=== PATIENT | male | born 1970 | race Caucasian/White ===

== ENCOUNTER 2018-09-12 06:13 | Inpatient (IN) | payer OTHER ==
[2018-09-09 16:15] VITALS: BMI 35.3
[2018-09-12] VITALS (26 sets, daily range): BP systolic 96–123; BP diastolic 62–79; PULSE 64–121; RESP 12–22; Ht 182.9 cm; Wt 116.3 kg
[~2018-09-12] VITALS: Ht 182.9 cm; Wt 116.3 kg
--- NOTE | 2018-09-12 05:27 | HPN ---
Date/Time of Note Date/Time of Note DATE: 09/12/18 TIME: 05:27 Interval H&P Admission Note Pt. seen H&P reviewed: No system changes JYOTI RASCON MD September 12, 2018 05:27
--- NOTE | 2018-09-12 05:30 | OPR ---
Date/Time of Note Date/Time of Note DATE: 09/12/18 TIME: 05:27 Operative Report Procedure Date: September 12, 2018 Preoperative Diagnosis Right shoulder rotator cuff tear arthropathy Postoperative Diagnosis 1. Right shoulder secondary arthritis (cuff arthropathy) 2. Right shoulder acromioclavicular joint arthritis 3. Right shoulder biceps partial tendon tear Operation/Procedure Performed 1. Right reverse total shoulder arthroplasty 2. Right shoulder open distal clavicle excision 3. Right shoulder open biceps tenodesis 4. Right shoulder injection of PRP solution Surgeon see signature line Physical Medicine Teacher Delano Fabian PA-C Anesthesia Type: general Estimated Blood Loss: 150 - 200 ml's Transfusion none Specimen None Grafts/Implants See operative note Complications none Pt Condition Post Procedure: stable Disposition: PACU Procedure Description WINDOWS SERVER SPECIALIST SURGEON: LAMONT Quiroz was asked to be present for this case at my request. Assistance was necessary as a result of the highly technical nature of this operation. When performing an open total shoulder replacement, it is critical to have a trained assistant offset press operator who is an expert in handling the extremity and assisting the surgeon in tasks such as manipulation of the arm, protection of the neurovascular structures and positioning the implants. This assistance cannot be performed by a wafer fab technician, as it is considered an integral part of the procedure and the assistant offset press operator should be compensated for his time. PROCEDURE IN DETAIL: Following the administration of general anesthesia supplemented with a peripheral nerve block for postoperative pain control, the patient was examined under anesthesia. This revealed severe stiffness and significant glenohumeral as well as subacromial crepitus. The antecubital fossa was then prepped and 60 cc of blood were aspirated. The blood was then subsequently given to the digital media representative from the company to prepare the PRP solution. Examination of the right shoulder revealed very significant stiffness including a forward flexion of about 90 degrees abduction 75 degrees maximal external rotation 65 degrees with severe crepitus. There was anteroposterior escape of the humeral head, also. The patient was then placed in the beach chair position. Sterile prep and drape was then undertaken. An extended deltopectoral incision was then carried through the interval exposing the conjoined tendon and retracting it medially. The superior aspect of the joint was then evaluated. Significant osteophytes were noted in the acromioclavicular joint. The acromioclavicular joint capsule was then entered and the distal clavicle skeletonized for a distance of 10 mm. Severe arthritic changes were noted. An osteotome was then used to resect 10 mm of the distal clavicle. Good decompression was confirmed. The AC joint was irrigated and closed using a #2 interrupted suture. The subscapularis was noted to be partially disrupted superiorly. Severe arthritic changes were noted with very large peripheral osteophytes. The superior rotator cuff was torn and retracted. The biceps tendon was noted to be partially subluxed and had some fraying in the bicipital groove. The intra- articular portion was resected and the distal aspect of the biceps tendon was then mobilized. Multiple #2 sutures were placed in the bicipital groove at the level of the pectoralis major creating a bicipital tenodesis. Solid fixation was obtained. A humeral head osteotomy was then created in the appropriate degree of version and inclination. The humerus was retracted and the glenoid was exposed. Peripheral osteophytes were removed and a complete capsulectomy performed. The central canal of the glenoid was then entered and prepared for a standard Depuy baseplate. A standard Depuy baseplate was then applied with four peripheral screws and solid fixation. A 38 mm glenosphere was then applied, with solid fixation. The humerus was then reamed and prepared for a 14 mm humeral component with a standard metaphyseal component with a 9 mm liner. The humeral canal was irr igated and the PRP solution was implanted within the humeral canal. The actual components were implanted with solid fixation. The arm was taken through full range of motion with no evident instability. The joint was then thoroughly irrigated, the deep tissues were approximated using #1 suture followed by closure of the deep layer using 2-0 Monocryl. The skin was closed using 4-0 Monocryl suture, and a Prenio dressing. An Ultrasling was then applied. The patient was awakened and transported to the recovery room in stable condition. Estimated blood loss for this procedure was 250 cc. Radiographs will be obtained in the recovery room. JYOTI RASCON MD September 12, 2018 05:30
[~2018-09-12 06:13] MED LIST: BUPIVACAINE 0.5% (SDV) 30 ML, morphine SULFATE (PF) 8 MG, EPINEPHrine 0.3 MG, KETOROLAC... IRR SCH; DEXAMETHASONE 1 MG TAB PO SCH; GABAPENTIN 300 MG CAP PO SCH; NAPR275T83 PO; TRAM50TA PO; TRANEXAMIC ACID 1GM/100ML(PMX) 100 ML IVPB SCH; VANCOMYCIN 1 GM (PMX) 250 ML IVPB SCH
[2018-09-12] MEDS ORDERED: THROMBIN (BOVINE) 5,000 UNIT VIAL TP ONE (06:57)
[2018-09-12] MEDS ORDERED: CA CHLORIDE 10% 10 ML SYRINGE ONE (06:58)
[2018-09-12] MEDS ORDERED: POLYMYXIN/BACITRACIN 1L IRRIG ONE (06:58)
[2018-09-12] MEDS ORDERED: DESFLURANE 15 MIN ONE (07:00)
[2018-09-12] MEDS ORDERED: CEFAZOLIN 1 GM INJ ONE (07:00)
[2018-09-12] MEDS ORDERED: PROPOFOL 200 MG INJ ONE (07:00)
[2018-09-12] MEDS ORDERED: ROCURONIUM 50 MG INJ ONE (07:00)
[2018-09-12] MEDS ORDERED: BUPIVACAINE 0.5% (SDV) 30 ML INJ ONE (07:28)
[2018-09-12] MEDS ORDERED: LACTATED RINGER'S 1,000 ML IV SCH (07:30)
[2018-09-12] MEDS ORDERED: MIDAZOLAM 1 MG/ML 2 ML INJ ONE (07:31)
[2018-09-12] MEDS ORDERED: LIDOCAINE 2% (SDV) 5 ML INJ ONE (07:31)
--- NOTE | 2018-09-12 07:53 | PREAC ---
Date/Time of Note Date/Time of Note DATE: 09/12/18 TIME: 07:51 Anesthesia Eval and Record Evaluation Time Pre-Procedure Interview DATE: 09/12/18 TIME: 07:51 Age 48 Sex male NPO: 8 hrs Preoperative diagnosis right shoulder arthritis Planned procedure reverse right total shoulder replacement Past Medical History Past Medical History: Includes Pulm: Smoking Hx Musculoskeletal: Osteoarthritis GI: Obesity Surgery & Anesthesia Issues No known issue Meds Anticoagulation: No Beta Cristobal within 24 hr: No Reason Beta Cristobal not given: Pt. not on B-Cristobal Reported Medications Naproxen Sodium* (Naproxen*) 275 Mg Tablet, 500 MG PO BID PRN for PAIN, TAB 09/09/18 Tramadol Hcl* (Ultram*) 50 Mg Tablet, 50 MG PO Q6H PRN for PAIN, TAB 09/09/18 Current Medications Vancomycin HCl 250 ml @ 250 mls/hr PRE-OP IVPB Last administered on 09/12/18at 07:28; Admin Dose 250 MLS/HR; Start 09/12/18 at 06:00; Stop 09/12/18 at 15:00 Tranexamic Acid 100 ml @ 200 mls/hr Pre-op IVPB ; Start 09/12/18 at 06:00; Stop 09/12/18 at 15:00 Bupivacaine HCl/ Morphine Sulfate/ Epinephrine/ Ketorolac Tromethamine/ Clonidine/Sodium Chloride/ Vancomycin HCl INTRA-OP IRR ; Start 09/12/18 at 06:00; Stop 09/12/18 at 12:00 Dexamethasone (Decadron) 2 mg PREOP PO Last administered on 09/12/18at 07:29; Admin Dose 2 MG; Start 09/12/18 at 06:00; Stop 09/12/18 at 12:00 Gabapentin (Neurontin) 300 mg ONCE PO Last administered on 09/12/18at 07:28; Admin Dose 300 MG; Start 09/12/18 at 06:00; Stop 09/12/18 at 12:00 Lactated Ringer's 1,000 ml @ 0 mls/hr Q0M IV Last administered on 09/12/18at 07:29; Admin Dose 25 MLS/HR; Start 09/12/18 at 07:30 Meds reviewed: Yes Allergies Coded Allergies: Penicillins (Verified Allergy, Unknown, 09/12/18) PASSED OUT Allergies Reviewed: Yes Labs/Studies Labs Reviewed: Reviewed by anesthesiologist test: N/A Pre-procedure Exam Last vitals Vital Signs Date Temp Pulse Resp B/P (MAP) Pulse Ox O2 O2 Flow FiO2 Time Delivery Rate 09/12/18 97.9 87 16 123/79 16 Room Air 07:38 (94) Airway: Adequate mouth opening, Adequate thyromental dist Mallampati: Mallampati II Teeth: Normal Lung: Normal Heart: Normal ASA Physical Status ASA physical status: 2 Emergency: None Planned Anesthetic General/MAC: ETT Nerve block: Brachial plexus (right) Planned Pain Management Parenteral pain med Pre-operative Attestations Prior to commencing anesthesia and surgery, the patient was re-evaluated, there was verification of: *The patient's identity *The results of appropriate recent lab work and preoperative vital signs *The above evaluation not changing prior to induction *Anesthetic plan, risk benefits, alternative and complications discussed with patient/family; questions answered; patient/family understands, accepts and wishes to proceed. URIEL MCCARTHY September 12, 2018 07:53
[2018-09-12] MEDS ORDERED: LABETALOL HCL 20MG INJ ONE (08:50)
[2018-09-12] MEDS ORDERED: ONDANSETRON 4 MG INJ ONE (09:23)
[2018-09-12] MEDS ORDERED: DEXAMETHASONE 4 MG/ML 5 ML INJ ONE (09:23)
[2018-09-12] MEDS ORDERED: ONDANSETRON 4 MG INJ IV PRN ×2 (10:00→10:30)
[2018-09-12] MEDS ORDERED: LOPERAMIDE 2 MG CAP PO PRN (10:00)
[2018-09-12] MEDS ORDERED: KETOROLAC 15 MG INJ IV PRN (10:00)
[2018-09-12] MEDS ORDERED: NACL 0.9% 3 ML SYG IV SCH (10:00)
[2018-09-12] MEDS ORDERED: oxyCODONE 5 MG TAB PO PRN ×3 (10:00)
[2018-09-12] MEDS ORDERED: ZOLPIDEM 5 MG TAB PO PRN (10:00)
[2018-09-12] MEDS ORDERED: DIPHENHYDRAMINE 50 MG INJ IV PRN ×2 (10:00→10:30)
[2018-09-12] MEDS ORDERED: TRANEXAMIC ACID 1GM/100ML(PMX) 100 ML IVPB ONE (10:00)
[2018-09-12] MEDS ORDERED: HYDROmorphONE 1 MG/ML SYG IV PRN (10:00)
[2018-09-12] MEDS ORDERED: MAGNESIUM HYDROXIDE 30ML CUP PO PRN (10:00)
[2018-09-12] MEDS ORDERED: GLYCOPYRROLATE 0.4 MG INJ ONE (10:13)
[2018-09-12] MEDS ORDERED: NEOSTIGMINE 3 MG/3 ML SYRINGE ONE (10:13)
[2018-09-12] MEDS ORDERED: EPHEDrine SULFATE 50 MG/5 ML SYG IV PRN (10:30)
[2018-09-12] MEDS ORDERED: MEPERIDINE 25 MG INJ IV PRN (10:30)
[2018-09-12] MEDS ORDERED: METOCLOPRAMIDE 10 MG INJ IV PRN (10:30)
[2018-09-12] MEDS ORDERED: ALBUTEROL 0.083% (NEB) 2.5 MG/3 ML AMP HHN PRN (10:30)
[2018-09-12] MEDS ORDERED: KETOROLAC 30 MG INJ IV PRN (10:30)
[2018-09-12] MEDS ORDERED: HYDROmorphONE 1 MG/5 ML IV SYRINGE IV PRN ×3 (10:30)
[2018-09-12] MEDS ORDERED: LABETALOL HCL 20MG INJ IV PRN (10:30)
[2018-09-12] MEDS ORDERED: OXYCODONE/ACETAMINOPHEN (5/325) TAB PO PRN ×2 (10:30)
[2018-09-12] MEDS ORDERED: FENTAnyl 50 MCG/ML VIAL IV PRN ×3 (10:30)
[2018-09-12] MEDS ORDERED: MIDAZOLAM 1 MG/ML 2 ML INJ IV PRN (10:30)
[2018-09-12] MEDS ORDERED: hydrALAzine 20 MG INJ IV PRN (10:30)
--- NOTE | 2018-09-12 10:30 | PAC ---
Date/Time of Note Date/Time of Note DATE: 09/12/18 TIME: 10:30 Post-Anesthesia Notes Post-Anesthesia Note Last documented vital signs Vital Signs Date Temp Pulse Resp B/P (MAP) Pulse Ox O2 O2 Flow FiO2 Time Delivery Rate 09/12/18 97.9 87 16 123/79 16 Room Air 1030 (94) Activity: WNL Respiratory function: WNL Cardiovascular function: WNL Mental status: Baseline Pain reasonably controlled: Yes Hydration appropriate: Yes Nausea/Vomiting absent: Yes URIEL MCCARTHY September 12, 2018 10:30
[2018-09-12] MEDS: ACETAMINOPHEN 500 MG TAB PO SCH ×3 (12:00→23:40)
[2018-09-12] MEDS: DEXAMETHASONE 2 MG TAB PO SCH ×3 (12:00→23:37)
[2018-09-12] MEDS: VANCOMYCIN 500 MG (PMX) 100 ML IVPB SCH (19:50)
[2018-09-12] MEDS ORDERED: GABAPENTIN 300 MG CAP PO SCH (21:00)
[2018-09-12] MEDS: SENNA/DOCUSATE NA (8.6MG/50MG) TAB PO SCH (21:22)
[2018-09-13] VITALS: BP 101/61; PULSE 99; RESP 16
--- NOTE | 2018-09-13 05:52 | PN ---
Date/Time of Note Date/Time of Note DATE: 09/13/18 TIME: 05:52 Subjective Awake and alert with no complaints Objective Vitals Vital Signs Date Temp Pulse Resp B/P (MAP) Pulse Ox O2 O2 Flow FiO2 Time Delivery Rate 09/13/18 98.1 99 16 101/61 94 Nasal 3.0 00:00 (74) Cannula Intake and Output 09/12/18 09/12/18 09/13/18 1515:00 23:00 07:00 IntakeIntake Total 700 ml 1030 ml 990 ml OutputOutput Total 20 ml 800 ml 900 ml BalanceBalance 680 ml 230 ml 90 ml Wound is clean and dry. He is neurologically intact. There are no signs of DVT. Medications Medications Current Medications Lactated Ringer's 1,000 ml @ 0 mls/hr Q0M IV Last administered on 09/12/18 07:29; Admin Dose 25 MLS/HR; Start 09/12/18 at 07:30 Vancomycin HCl 100 ml @ 100 mls/hr Q12H IVPB Last administered on 09/12/18 19:50; Admin Dose 100 MLS/HR; Start 09/12/18 at 19:30; Stop 09/13/18 at 08:29 Senna/Docusate Sodium (Senokot-S) 1 tab BID PO Last administered on 09/12/18 21:22; Admin Dose 1 TAB; Start 09/12/18 at 21:00 Simethicone (Mylicon) 80 mg TID PRN PO .GAS; Start 09/12/18 at 10:00 Magnesium Hydroxide (Milk Of Mag) 30 ml BID PRN PO .CONSTIPATION; Start 09/12/18 at 10:00 Loperamide HCl (Imodium Cap) 2 mg Q6H PRN PO .DIARRHEA; Start 09/12/18 at 10:00 Dexamethasone (Decadron) 2 mg Q6 PO Last administered on 09/12/18 23:37; Admin Dose 2 MG; Start 09/12/18 at 12:00; Stop 09/13/18 at 06:01 Gabapentin (Neurontin) 300 mg HS PO Last administered on 09/12/18 21:22; Admin Dose 300 MG; Start 09/12/18 at 21:00 Acetaminophen (Tylenol Tab) 500 mg Q6 PO Last administered on 5/2/19at 23:40; Admin Dose 500 MG; Start 09/12/18 at 12:00 Oxycodone HCl (Roxicodone) 15 mg Q4H PRN PO .PAIN; Start 09/12/18 at 10:00 Oxycodone HCl (Roxicodone) 10 mg Q4H PRN PO .PAIN; Start 09/12/18 at 10:00 Oxycodone HCl (Roxicodone) 5 mg Q4H PRN PO .PAIN; Start 09/12/18 at 10:00 Hydromorphone HCl (Dilaudid) 1 mg Q4H PRN IV .BREAKTHROUGH PAIN; Start 09/12/18 at 10:00 Ketorolac Tromethamine (Toradol) 15 mg Q6H PRN IV .PAIN; Start 09/12/18 at 10:00; Stop 09/14/18 at 09:59 Ondansetron HCl (Zofran Inj) 4 mg Q6H PRN IV NAUSEA/VOMITING; Start 09/12/18 at 10:00 Diphenhydramine HCl (Benadryl) 25 mg Q6H PRN IV .PRURITUS; Start 09/12/18 at 10:00 Zolpidem Tartrate (Ambien) 10 mg HS PRN PO .INSOMNIA; Start 09/12/18 at 10:00 IV Flush (NS 3 ml) 3 ml per protocol IV ; Start 09/12/18 at 10:00 VTE Prophylaxis Risk score (from Nsg)>0 risk: 5 SCD applied (from Nsg): Yes Lines/Catheters IV Catheter Type: Saline Lock Gamez in Place: No Assessment/Plan Assessment/Plan Assessment: Status post total shoulder replacement Plan: Begin OT this morning follow-up after discharge in 2 weeks JYOTI RASCON MD September 13, 2018 05:52
--- NOTE | 2018-09-13 05:53 | DS ---
Date/Time of Note Date/Time of Note DATE: 09/13/18 TIME: 05:53 Discharge Summary Admission/Discharge Info Admit Date/Time September 12, 2018 at 06:13 Discharge Date/Time September 13, 2018 Discharge Diagnosis Right shoulder rotator cuff tear arthropathy Patient Condition: Good Hospital Course Patient was admitted and underwent uncomplicated procedure. Postop day 1 stable, afebrile discharged home to be followed up in 2 weeks Home Meds Discontinued Reported Medications Naproxen Sodium* (Naproxen*) 275 Mg Tablet, 500 MG PO BID PRN for PAIN, TAB 09/09/18 Tramadol Hcl* (Ultram*) 50 Mg Tablet, 50 MG PO Q6H PRN for PAIN, TAB 09/09/18 Primary Care Provider Not On Staff Doctor JYOTI RASCON MD September 13, 2018 05:53
--- NOTE | 2018-09-13 05:57 | PDOCDIS ---
Discharge Instructions DIAGNOSIS Discharge Diagnosis Right shoulder rotator cuff tear arthropathy CONDITION [id number] Patient Condition: Cyuaz3b Good HOME CARE INSTRUCTIONS: [id number] Diet Instructions: Qadrn2t Regular ACTIVITY: Ltgyb4Tn Activity Restrictions: Flepg3k Slowly Increase Activity Keep Limb Elevated [id number] Bathing Restrictions: Abtjy1k Shower FOLLOW UP/APPOINTMENTS Follow-up Plan 2 weeks in the office SCHOOL/WORK RELEASE May return to School/Work with: With Restrictions School/Work Release Comment: 5 pound tabletop usage for 4 weeks JYOTI RASCON MD September 13, 2018 05:57
[2018-09-13 06:00] VITALS: BP 109/63; PULSE 89; RESP 18
[2018-09-13] MEDS: DEXAMETHASONE 2 MG TAB PO SCH (06:44)
[2018-09-13] MEDS: VANCOMYCIN 500 MG (PMX) 100 ML IVPB SCH (06:45)
[2018-09-13] MEDS: ACETAMINOPHEN 500 MG TAB PO SCH (06:45)
[2018-09-13] MEDS: SENNA/DOCUSATE NA (8.6MG/50MG) TAB PO SCH (08:36)
[2018-09-13 08:45] VITALS: BP 113/66; PULSE 86; RESP 18
[2018-09-13 08:53] VITALS: BP 138/65; PULSE 86; RESP 18
== END 2018-09-13 10:00 | disposition home or self-care (01) | DRG 483 ==
LOC: REC 06:13 → EDSTATUS 07:00 → MS1 11:39
PROVIDERS: ADMIT Orthopaedic Surgery; ATTEND Orthopaedic Surgery
PROC: 0LS30ZZ Reposition Right Upper Arm Tendon, Open Approach (ICD-10-PCS; 2018-09-12)
PROC: 0PB90ZZ Excision of Right Clavicle, Open Approach (ICD-10-PCS; 2018-09-12)
PROC: 0RRJ00Z Replacement of Right Shoulder Joint with Reverse Ball and Socket Synthetic Substitute, Open Approach (ICD-10-PCS; principal; 2018-09-12 08:00)
DX: M19.211 Secondary osteoarthritis, right shoulder (principal); M19.011 Primary osteoarthritis, right shoulder; S46.211A Strain of muscle, fascia and tendon of other parts of biceps, right arm, initial encounter; Z87.891 Personal history of nicotine dependence
CPT/HCPCS: 86999; 88304; 88311; 97161; C1776; J0171; J0690; J0735; J1100; J1885; J2250; J2274; J2405; J2710; J3010; J3370

== ENCOUNTER 2018-10-22 07:35 | Emergency (ER) | payer OTHER ==
[~2018-10-22] VITALS: Ht 182.9 cm; Wt 111.0 kg
[2018-10-22 07:36] VITALS: Ht 182.9 cm; Wt 111.0 kg
[2018-10-22 09:01] VITALS: BP 133/65; PULSE 74; RESP 19
--- NOTE | 2018-10-22 09:53 | ERD ---
ER Documentation Chief Complaint Chief Complaint right shoulder possible dislocation, recurrent HPI Patient is a 48-year-old male with a history of recent right shoulder replacement who presents with a right shoulder pain. The patient said that it is dislocated. It happened this morning. He said that since the surgery 2 weeks ago it has been dislocating and relocating on its own. He is refusing pain medicines at this time. Dr. Rascon was the orthopedic surgeon. ROS All systems reviewed and are negative except as per history of present illness. Medications Home Meds No Active Prescriptions or Reported Meds Allergies Allergies: Coded Allergies: Penicillins (Verified Allergy, Unknown, 09/12/18) PASSED OUT cefazolin (Verified Allergy, Unknown, PASS OUT, 09/12/18) PMhx/Soc History of Surgery: No (R KNEE SX,APPENDECTOMY) Anesthesia Reaction: No Hx Neurological Disorder: No Hx Respiratory Disorders: No Hx Cardiac Disorders: No Hx Psychiatric Problems: No Hx Miscellaneous Medical Probl: Yes (oa rt shoulder , LBP, obesity .rt shoulder totator cuff tear) Hx Alcohol Use: Yes (SOCIAL) Hx Substance Use: No Hx Tobacco Use: Yes (5 YEARS AGO) Smoking Status: Former smoker FmHx Family History: coronary disease Physical Exam Vitals Vital Signs Date Temp Pulse Resp B/P (MAP) Pulse Ox O2 O2 Flow FiO2 Time Delivery Rate 10/22/18 98.7 74 19 133/65 100 Room Air 09:01 (87) 10/22/18 98.7 85 18 152/85 99 07:36 (107) Physical Exam Const: Moderate distress Head: Atraumatic Eyes: Normal Conjunctiva ENT: Normal External Ears, Nose and Mouth. Neck: Full range of motion. No meningismus. Resp: Clear to auscultation bilaterally Cardio: Regular rate and rhythm, no murmurs Abd: Soft, non tender, non distended. Normal bowel sounds Skin: No petechiae or rashes Back: No midline or flank tenderness Ext: Right shoulder squared off consistent with right shoulder dislocation, all 3 nerve roots of the right upper extremity are intact, able to squeeze fingers, able to spread fingers, able to give a thumbs up, able to give an okay sign Neur: Awake and alert, 3 nerve roots of the right upper extremity are intact Psych: Normal Mood and Affect Departure Diagnosis: Primary Impression: Shoulder dislocation Encounter type: initial encounter Laterality: right Qualified Codes: S43.004A - Unspecified dislocation of right shoulder joint, initial encounter Condition: Fair Patient Instructions: Dislocation: Shoulder (Reduced) Referrals: JYOTI RASCON MD Additional Instructions: Go to Dr. Rascon's office Sunday morning for follow up appointment. Do not remove your arm from the shoulder immobilizer or do any range of motion exercises for now. IKE BORGES MD Oct 22, 2018 09:53
== END 2018-10-22 09:09 | disposition home or self-care (01) ==
LOC: E/R 07:35
DX: S43.004D Unspecified dislocation of right shoulder joint, subsequent encounter (principal); E66.9 Obesity, unspecified; X58.XXXD Exposure to other specified factors, subsequent encounter; Z68.33 Body mass index [BMI] 33.0-33.9, adult; Z87.891 Personal history of nicotine dependence
CPT/HCPCS: 29105; 73030; Z7502

== ENCOUNTER 2018-11-07 07:00 | Inpatient (IN) | payer OTHER ==
[2018-11-07] VITALS (22 sets, daily range): BP systolic 112–137; BP diastolic 68–87; PULSE 78–94; RESP 12–20; Ht 180.3 cm; Wt 112.8 kg
[~2018-11-07] VITALS: Ht 180.3 cm; Wt 112.8 kg
--- NOTE | 2018-11-07 05:55 | HPN ---
Date/Time of Note Date/Time of Note DATE: 11/07/18 TIME: 05:55 Interval H&P Admission Note Pt. seen H&P reviewed: No system changes JYOTI RASCON MD Nov 07, 2018 05:55
--- NOTE | 2018-11-07 06:00 | OPR ---
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 Revision of right reverse total shoulder replacement Surgeon see signature line Production Shift Supervisor Evelio Gardner MD Anesthesia Type: general Estimated Blood Loss: 50 - 100 ml's Transfusion none Specimen None Grafts/Implants See operative note Complications none Pt Condition Post Procedure: stable Disposition: PACU Procedure Description INDICATIONS FOR PROCEDURE: The patient has a history of a reverse total shoulder replacement that was done approximately 6 weeks ago. Over the last month, he has had several relatively atraumatic episodes of subluxation and araseli dislocation episodes without any significant traumatic event. As a result of the recurrent instability episodes, he will be taken to the operating room for revision of the components and determination of whether there is a deep infection. I have explained to him that we will probably change the components perhaps for a larger one is fair and metaphyseal component. There is also the possibility of an infection and if not should occur, we will have to do a staged revision seizure. POT FEEDER SURGEON: Evelio Gardner MD was asked to be present for this case at my request. Assistance was necessary as a result of the highly technical nature of this operation. When performing an open total shoulder replacement, it is critical to have a trained assistant press operator offset who is an expert in handling the extremity and assisting the surgeon in tasks such as manipulation of the arm, protection of the neurovascular structures and positioning the implants. This assistance cannot be performed by a renal technician, as it is considered an integral part of the procedure and the assistant press operator offset should be compensated for his time. PROCEDURE IN DETAIL: Following the administration of general anesthesia supplemented with a peripheral nerve block for postoperative pain control, the patient was examined under anesthesia. Examination revealed that the wound was well-healed. There was no evident fluid collection. Further examination of the stability of the components revealed a mild inferior translation only. In attempting to dislocate the patient there was no evident dislocation episode. There the palpable subluxation, however I was unable to frankly dislocate him. The patient was then placed in the beach chair position. Sterile prep and drape was then undertaken. An extended deltopectoral incision was then carried through the prior incision.. There was no evidence of any synovial reactive tissue or inflammatory tissue. Nonetheless, a culture was obtained for further analysis. The total joint components were then evaluated for any loosening, and there was none. In addition, there was an evidence significant subluxation and when the arm was placed in extension and slight external rotation there was a subluxation event and finally araseli dislocation. In addition, with respect to synovitis and/or fluid, there was no significant reactive tissue. Based on the findings, the decision was then made to convert the glenosphere to a larger and slightly more inferior glenosphere in order to increase the offset. In addition, the metaphyseal liner was also lengthened. The glenoid was then evaluated. The glenosphere was removed. A new glenosphere, which was a 42 mm glenosphere with a 4 mm offset was then applied in order to improve stability of the components. Was an inferiorly rotated component as well with eccentricity. This was placed as inferior as possible. The humerus was then addressed. The humeral metaphyseal component was then removed and a new 42 mm (larger) component was then placed. Following serial trials, a 9 mm metal maintainer operator was then placed followed by a 3 mm x 42 mm liner. This was seen to be the best and most stable configuration. Actual components were then implanted with solid fixation. The arm was taken through full range of motion with no evident instability. Following thorough irrigation, the depth of the joint was then sprinkled with 3 g of vancomycin powder. The joint was then thoroughly irrigated, the deep tissues were approximated using #1 suture followed by closure of the deep layer using 2-0 Monocryl. The s kin was closed using 4-0 Monocryl suture, and a Prenio dressing. An Ultrasling was then applied. The patient was awakened and transported to the recovery room in stable condition. Estimated blood loss for this procedure was 50 cc. Radiographs will be obtained in the recovery room. JYOTI RASCON MD Nov 07, 2018 06:00
--- NOTE | 2018-11-07 06:01 | PDOCDIS ---
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
[~2018-11-07 07:00] MED LIST changes: +DEXAMETHASONE 1 MG TAB PO ONE; -DEXAMETHASONE 1 MG TAB PO SCH; +GABAPENTIN 300 MG CAP PO ONE; -GABAPENTIN 300 MG CAP PO SCH; -NAPR275T83 PO; -TRAM50TA PO; +TRANEXAMIC ACID 1GM/100ML(PMX) 100 ML IVPB ONE; -TRANEXAMIC ACID 1GM/100ML(PMX) 100 ML IVPB SCH; +VANCOMYCIN 1 GM (PMX) 250 ML IVPB ONE; -VANCOMYCIN 1 GM (PMX) 250 ML IVPB SCH
--- NOTE | 2018-11-07 07:02 | HP ---
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 HPI/ROS Admit Date/Time Admit Date/Time 11/07/2018 Hx of Present Illness Recurrent instability right reverse total shoulder ROS No contributory significant issues PMH/Family/Social Past Medical History Medical History: no pertinent history Medications Current Medications Vancomycin HCl 250 ml @ 250 mls/hr PRE-OP ONCE IVPB ; Start 11/07/18 at 06:00; Stop 11/07/18 at 06:59 Bupivacaine HCl/ Morphine Sulfate/ Epinephrine/ Ketorolac Tromethamine/ Clonidine/Sodium Chloride/ Vancomycin HCl INTRA-OP IRR ; Start 11/07/18 at 06:00 Coded Allergies: Penicillins (Verified Allergy, Unknown, 09/12/18) PASSED OUT cefazolin (Verified Allergy, Unknown, PASS OUT, 09/12/18) Past Surgical History Recent reverse total shoulder Family History Significant Family History: no pertinent family hx Social History Smoking Status: Former smoker Drug Use: none Exam/Review of Systems Vital Signs Vitals Blood pressure 1070/91 heart rate 80, respirations 24 Exam Exam Normal appearance Musculoskeletal: joint tenderness (Healing wound with no drainage.) JYOTI RASCON MD Nov 07, 2018 07:02
[2018-11-07] MEDS ORDERED: HYDR-4011 PO (11:56)
--- NOTE | 2018-11-07 12:03 | PREAC ---
Date/Time of Note Date/Time of Note DATE: 11/07/18 TIME: 12:00 Anesthesia Eval and Record Evaluation Time Pre-Procedure Interview DATE: 11/07/18 TIME: 12:00 Age 48 Sex male NPO: 8 hrs Preoperative diagnosis Rt shoulder replacement instability Planned procedure Rt total shoulder revision Past Medical History Past Medical History: Includes Cardio: Dyslipidemia Musculoskeletal: Osteoarthritis GI: Morbid obesity Surgery & Anesthesia Issues No known issue Meds Anticoagulation: No Beta Cristobal within 24 hr: No Reason Beta Cristobal not given: Pt. not on B-Cristobal Reported Medications Hydrocodone/Acetaminophen ([place] 5-325 Tablet) 1 Each Tablet, 1 EACH PO, TAB 11/07/18 Current Medications Bupivacaine HCl/ Morphine Sulfate/ Epinephrine/ Ketorolac Tromethamine/ Clonidine/Sodium Chloride/ Vancomycin HCl INTRA-OP IRR ; Start 11/07/18 at 06:00 Meds reviewed: Yes Allergies Coded Allergies: doxycycline (Verified Allergy, Severe, burning, itching, 11/07/18) Penicillins (Verified Allergy, Unknown, 09/12/18) PASSED OUT cefazolin (Verified Allergy, Unknown, PASS OUT, 09/12/18) Allergies Reviewed: Yes Labs/Studies Labs Reviewed: Reviewed by anesthesiologist test: N/A Studies: ECG Pre-procedure Exam Last vitals Vital Signs Date Temp Pulse Resp B/P (MAP) Pulse Ox O2 O2 Flow FiO2 Time Delivery Rate 11/07/18 96.9 94 16 121/77 95 Room Air 11:49 (92) Airway: Adequate mouth opening, Adequate thyromental dist Mallampati: Mallampati III Teeth: Normal Lung: Normal Heart: Normal ASA Physical Status ASA physical status: 3 Emergency: None Planned Anesthetic General/MAC: LMA Nerve block: Brachial plexus (right) Planned Pain Management Single shot nerve block, Parenteral pain med Pre-operative Attestations Prior to commencing anesthesia and surgery, the patient was re-evaluated, there was verification of: *The patient's identity *The results of appropriate recent lab work and preoperative vital signs *The above evaluation not changing prior to induction *Anesthetic plan, risk benefits, alternative and complications discussed with patient/family; questions answered; patient/family understands, accepts and wishes to proceed. REDD BERMUDEZ MD Nov 07, 2018 12:03
[2018-11-07] MEDS ORDERED: MIDAZOLAM 1 MG/ML 2 ML INJ ONE (12:06)
[2018-11-07] MEDS ORDERED: ETOMIDATE 20 MG INJ ONE (12:06)
[2018-11-07] MEDS ORDERED: ONDANSETRON 4 MG INJ ONE (12:06)
[2018-11-07] MEDS ORDERED: BUPIVACAINE 0.25% (MPF) 30 ML INJ ONE (12:08)
[2018-11-07] MEDS ORDERED: TRANEXAMIC ACID 1GM/100ML(PMX) 100 ML ONE (12:26)
[2018-11-07] MEDS ORDERED: CA CHLORIDE 10% 10 ML SYRINGE ONE (12:35)
[2018-11-07] MEDS ORDERED: POLYMYXIN/BACITRACIN 1L IRRIG ONE (12:35)
[2018-11-07] MEDS ORDERED: THROMBIN 5000 UNIT VIAL ONE (12:35)
[2018-11-07] MEDS ORDERED: VANCOMYCIN 1 GM INJ ONE (12:36)
[2018-11-07] MEDS ORDERED: CEFAZOLIN 1 GM INJ ONE (13:23)
[2018-11-07] MEDS ORDERED: ROCURONIUM 50 MG INJ ONE (13:23)
[2018-11-07] MEDS ORDERED: PROPOFOL 20 ML ONE (13:23)
[2018-11-07] MEDS ORDERED: LIDOCAINE 2% (SDV) 5 ML INJ ONE (13:23)
[2018-11-07] MEDS ORDERED: KETOROLAC 15 MG INJ IV PRN (13:30)
[2018-11-07] MEDS ORDERED: MAGNESIUM HYDROXIDE 30ML CUP PO PRN (13:30)
[2018-11-07] MEDS ORDERED: VANCOMYCIN 500 MG (PMX) 100 ML IVPB SCH (13:30)
[2018-11-07] MEDS ORDERED: oxyCODONE 5 MG TAB PO PRN ×2 (13:30)
[2018-11-07] MEDS ORDERED: TRANEXAMIC ACID 1GM/100ML(PMX) 100 ML IVPB ONE (13:30)
[2018-11-07] MEDS ORDERED: LOPERAMIDE 2 MG CAP PO PRN (13:30)
[2018-11-07] MEDS ORDERED: HYDROmorphONE 1 MG/ML SYG IV PRN (13:30)
[2018-11-07] MEDS ORDERED: ZOLPIDEM 5 MG TAB PO PRN (13:30)
[2018-11-07] MEDS ORDERED: DIPHENHYDRAMINE 50 MG INJ IV PRN ×2 (13:30→14:00)
[2018-11-07] MEDS ORDERED: NACL 0.9% 3 ML SYG IV SCH (13:30)
[2018-11-07] MEDS ORDERED: ONDANSETRON 4 MG INJ IV PRN ×2 (13:30→14:00)
--- NOTE | 2018-11-07 13:37 | PAC ---
Date/Time of Note Date/Time of Note DATE: 11/07/18 TIME: 13:37 Post-Anesthesia Notes Post-Anesthesia Note Last documented vital signs Vital Signs Date Temp Pulse Resp B/P (MAP) Pulse Ox O2 O2 Flow FiO2 Time Delivery Rate 11/07/18 96.9 94 16 121/77 95 Room Air 11:49 (92) Activity: WNL Respiratory function: WNL Cardiovascular function: WNL Mental status: Baseline Pain reasonably controlled: Yes Hydration appropriate: Yes Nausea/Vomiting absent: Yes Comments BP:122/56, P:78, Spo2:99%, T:98,8 REDD BERMUDEZ MD Nov 07, 2018 13:37
[2018-11-07] MEDS ORDERED: LORAZEPAM 2 MG INJ IV PRN (14:00)
[2018-11-07] MEDS ORDERED: hydrALAzine 20 MG INJ IV PRN (14:00)
[2018-11-07] MEDS ORDERED: METOCLOPRAMIDE 10 MG INJ IV PRN (14:00)
[2018-11-07] MEDS ORDERED: MEPERIDINE 25 MG INJ IV PRN (14:00)
[2018-11-07] MEDS ORDERED: OXYCODONE/ACETAMINOPHEN (5/325) TAB PO PRN (14:00)
[2018-11-07] MEDS ORDERED: HYDROmorphONE 1 MG/5 ML IV SYRINGE IV PRN ×2 (14:00)
[2018-11-07] MEDS ORDERED: MIDAZOLAM 1 MG/ML 2 ML INJ IV PRN (14:00)
[2018-11-07] MEDS ORDERED: FENTAnyl 50 MCG/ML VIAL IV PRN (14:00)
[2018-11-07] MEDS ORDERED: LABETALOL HCL 20MG INJ IV PRN (14:00)
[2018-11-07] MEDS: ACETAMINOPHEN 500 MG TAB PO SCH (17:48)
[2018-11-07] MEDS: DEXAMETHASONE 2 MG TAB PO SCH (17:48)
[2018-11-07] MEDS ORDERED: GABAPENTIN 300 MG CAP PO SCH (21:00)
[2018-11-07] MEDS: SENNA/DOCUSATE NA (8.6MG/50MG) TAB PO SCH (21:37)
[2018-11-07] MEDS: oxyCODONE 5 MG TAB PO PRN (21:37)
[2018-11-08 00:16] VITALS: BP 118/71; PULSE 82; RESP 17
[2018-11-08] MEDS: DEXAMETHASONE 2 MG TAB PO SCH ×3 (00:39→11:11)
[2018-11-08] MEDS: VANCOMYCIN 500 MG (PMX) 100 ML IVPB SCH ×2 (00:40→11:11)
[2018-11-08] MEDS: ACETAMINOPHEN 500 MG TAB PO SCH ×3 (00:40→11:11)
[2018-11-08] MEDS: oxyCODONE 5 MG TAB PO PRN ×2 (02:48→11:11)
--- NOTE | 2018-11-08 06:02 | PN ---
Date/Time of Note Date/Time of Note DATE: 11/08/18 TIME: 06:01 Subjective Awake and alert. Doing well. Objective Vitals Vital Signs Date Temp Pulse Resp B/P (MAP) Pulse Ox O2 O2 Flow FiO2 Time Delivery Rate 11/08/18 98.6 82 17 118/71 96 00:16 (87) 11/07/18 Nasal 2.0 16:30 Cannula Intake and Output 11/07/18 11/07/18 11/08/18 1515:00 23:00 07:00 IntakeIntake Total 1100 ml 720 ml 860 ml OutputOutput Total 50 ml 800 ml 800 ml BalanceBalance 1050 ml -80 ml 60 ml Wound clean and dry. He is neurologically intact. There are no signs of DVT. Medications Medications Current Medications Bupivacaine HCl/ Morphine Sulfate/ Epinephrine/ Ketorolac Tromethamine/ Clonidine/Sodium Chloride/ Vancomycin HCl INTRA-OP IRR ; Start 11/07/18 at 06:00 Senna/Docusate Sodium (Senokot-S) 1 tab BID PO Last administered on 11/07/18at 21:37; Admin Dose 1 TAB; Start 11/07/18 at 21:00 Simethicone (Mylicon) 80 mg TID PRN PO .GAS; Start 11/07/18 at 13:30 Magnesium Hydroxide (Milk Of Mag) 30 ml BID PRN PO .CONSTIPATION; Start 11/07/18 at 13:30 Loperamide HCl (Imodium Cap) 2 mg Q6H PRN PO .DIARRHEA; Start 11/07/18 at 13:30 Dexamethasone (Decadron) 2 mg Q6 PO Last administered on 11/08/18at 00:39; Admin Dose 2 MG; Start 11/07/18 at 18:00; Stop 11/08/18 at 12:01 Gabapentin (Neurontin) 300 mg HS PO Last administered on 11/07/18at 21:37; Admin Dose 300 MG; Start 11/07/18 at 21:00 Acetaminophen (Tylenol Tab) 500 mg Q6 PO Last administered on 11/08/18at 00:40; Admin Dose 500 MG; Start 11/07/18 at 18:00 Oxycodone HCl (Roxicodone) 15 mg Q4H PRN PO .PAIN; Start 11/07/18 at 13:30 Oxycodone HCl (Roxicodone) 10 mg Q4H PRN PO .PAIN Last administered on 11/08/18at 02:48; Admin Dose 10 MG; Start 11/07/18 at 13:30 Oxycodone HCl (Roxicodone) 5 mg Q4H PRN PO .PAIN; Start 11/07/18 at 13:30 Hydromorphone HCl (Dilaudid) 1 mg Q4H PRN IV .BREAKTHROUGH PAIN Last administered on 11/07/18at 14:56; Admin Dose 1 MG; Start 11/07/18 at 13:30 Ketorolac Tromethamine (Toradol) 15 mg Q6H PRN IV .PAIN; Start 11/07/18 at 13:30 Ondansetron HCl (Zofran Inj) 4 mg Q6H PRN IV NAUSEA/VOMITING; Start 11/07/18 at 13:30 Diphenhydramine HCl (Benadryl) 25 mg Q6H PRN IV .PRURITUS; Start 11/07/18 at 13:30 Zolpidem Tartrate (Ambien) 10 mg HS PRN PO .INSOMNIA; Start 11/07/18 at 13:30 IV Flush (NS 3 ml) 3 ml per protocol IV Last administered on 11/07/18at 21:44; Admin Dose 3 ML; Start 11/07/18 at 13:30 Vancomycin HCl 100 ml @ 100 mls/hr Q12H IVPB Last administered on 11/08/18at 00:40; Admin Dose 100 MLS/HR; Start 11/08/18 at 00:00; Stop 11/08/18 at 12:59 VTE Prophylaxis Risk score (from Nsg)>0 risk: 4 SCD applied (from Nsg): Yes Lines/Catheters IV Catheter Type: Saline Lock Gamez in Place: No Assessment/Plan Assessment/Plan Assessment: Status post revision of reverse total shoulder Plan: Discharge this morning after PT follow-up 2 weeks JYOTI RASCON MD Nov 08, 2018 06:02
--- NOTE | 2018-11-08 06:02 | DS ---
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 Discharged the next day Home Meds Reported Medications Hydrocodone/Acetaminophen ([place] 5-325 Tablet) 1 Each Tablet, 1 EACH PO, TAB 11/07/18 Follow-up Plan 2 weeks in the office Primary Care Provider Not On Staff Doctor JYOTI RASCON MD Nov 08, 2018 06:02
[2018-11-08 07:33] VITALS: BP 121/68; PULSE 78; RESP 19
[2018-11-08] MEDS: SENNA/DOCUSATE NA (8.6MG/50MG) TAB PO SCH (08:58)
== END 2018-11-08 12:15 | disposition home or self-care (01) | DRG 483 ==
LOC: EDSTATUS 07:00 → REC 09:57 → MS1 14:43
PROVIDERS: ADMIT Orthopaedic Surgery; ATTEND Orthopaedic Surgery
PROC: 0RPJ0JZ Removal of Synthetic Substitute from Right Shoulder Joint, Open Approach (ICD-10-PCS; 2018-11-07)
PROC: 0RRJ00Z Replacement of Right Shoulder Joint with Reverse Ball and Socket Synthetic Substitute, Open Approach (ICD-10-PCS; principal; 2018-11-07 12:00)
DX: T84.028A Dislocation of other internal joint prosthesis, initial encounter (principal); Z96.611 Presence of right artificial shoulder joint; Y79.2 Prosthetic and other implants, materials and accessory orthopedic devices associated with adverse incidents; Z87.891 Personal history of nicotine dependence; E78.5 Hyperlipidemia, unspecified; R73.03 Prediabetes
CPT/HCPCS: 86999; 87070; 87075; 88300; 97161; C1776; J0171; J0690; J0735; J1170; J1885; J2250; J2274; J2405; J3010; J3370